=== PATIENT | female | born 1965 | race Caucasian/White ===

== ENCOUNTER 2016-09-03 21:41 | Emergency (ER) | payer SELFPAY ==
[~2016-09-03] VITALS: Ht 154.9 cm; Wt 54.4 kg
[2016-09-03 21:50] VITALS: BP 135/87
--- NOTE | 2016-09-03 22:14 | NUR ---
PATIENT LEFT WITHOUT BEING SEEN BY DR. SHOEMAKER. NO FURTHER CARE PROVIDED FOR PATIENT.
== END 2016-09-03 22:14 | disposition left against medical advice (07) ==
LOC: MED 21:41
DX: R05 Cough (principal); Z53.21 Procedure and treatment not carried out due to patient leaving prior to being seen by health care provider

== ENCOUNTER 2016-09-04 19:42 | Emergency (ER) | payer OTHER ==
[~2016-09-04] VITALS: Ht 154.9 cm; Wt 54.4 kg
[2016-09-04 20:00] VITALS: BP 119/70
--- NOTE | 2016-09-04 20:45 | NUR ---
PATIENT LEFT WITHOUT BEING SEEN BY DR. Boo. NO FURTHER CARE PROVIDED FOR PATIENT.
--- NOTE | 2016-09-04 20:45 | NUR ---
PATIENT LEFT WITHOUT BEING SEEN BY []. NO FURTHER CARE PROVIDED FOR PATIENT.
== END 2016-09-04 20:45 | disposition left against medical advice (07) ==
LOC: MED 19:42
DX: R05 Cough (principal); Z53.21 Procedure and treatment not carried out due to patient leaving prior to being seen by health care provider

== ENCOUNTER 2016-09-05 10:40 | Emergency (ER) | payer OTHER ==
[~2016-09-05] VITALS: Ht 154.9 cm; Wt 59.0 kg
[2016-09-05 10:59] VITALS: BP 131/74
--- NOTE | 2016-09-05 11:08 | NUR ---
PATIENT PRESENTS TO ED DUE TO COUGHING X 4 DAYS . DENIES N/V/D; SKIN IS PINK/WARM/DRY; AAOX4 WITH EVEN AND STEADY GAIT; HR EVEN AND REGULAR; PT DENIES ANY FEVER, CP; PATIENT POSITIONED FOR COMFORT; HOB ELEVATED; BEDRAILS UP X2; BED DOWN.
--- NOTE | 2016-09-05 11:20 | NUR ---
XRAY AT BEDSIDE
[2016-09-05] MEDS ORDERED: PROMETH/CODEINE 6.25-10MG/5ML 5 ML UDC PO ONE (11:35)
[2016-09-05] MEDS ORDERED: IBUPROFEN 800 MG TAB PO ONE (11:35)
--- NOTE | 2016-09-05 11:48 | NUR ---
DR. SHOEMAKER AWARE OF TEMP, COOLING MEASURES DONE, FLUIDS AND ORANGE JUICE GIVEN
[2016-09-05 12:09] VITALS: BP 108/68
--- NOTE | 2016-09-05 12:11 | NUR ---
Patient discharged with v/s stable. Written and verbal after care instructions given and explained. Patient alert, oriented and verbalized understanding of instructions. Ambulatory with steady gait. All questions addressed prior to discharge. ID band removed. Patient advised to follow up with PMD. Rx of AMOXICILLIN AND DEXTROMETHORPAN given. Patient educated on indication of medication including possible reaction and side effects. Opportunity to ask questions provided and answered.ENCOURAGED FLUID INTAKE AND PT AGREED WITH IT.
== END 2016-09-05 12:11 | disposition home or self-care (01) ==
LOC: MED 10:44
DX: J11.1 Influenza due to unidentified influenza virus with other respiratory manifestations (principal); R03.0 Elevated blood-pressure reading, without diagnosis of hypertension; F17.200 Nicotine dependence, unspecified, uncomplicated; Z71.6 Tobacco abuse counseling; Z88.8 Allergy status to other drugs, medicaments and biological substances
CPT/HCPCS: 36415; 71010; 87804; 99285; Q0092

== ENCOUNTER 2017-01-15 13:40 | Emergency (ER) | payer OTHER ==
[~2017-01-15] VITALS: Ht 154.9 cm; Wt 52.2 kg
[2017-01-15 13:55] VITALS: BP 134/85
--- NOTE | 2017-01-15 16:11 | NUR ---
PT TO BED 5
--- NOTE | 2017-01-15 16:12 | NUR ---
PT PRESENTS TO ER FOR EVALUATION OF RASH TO BACK AND LEGS X1 MONTH. PT DENIES ANY MEDICAL HX. DENIES N/V/D; SKIN IS PINK/WARM/DRY; AAOX4 WITH EVEN AND STEADY GAIT; LUNGS CLEAR BL; HR EVEN AND REGULAR; PT DENIES ANY FEVER, CP, SOB, OR COUGH AT THIS TIME; PATIENT STATES PAIN OF 0/10 AT THIS TIME; VSS; PATIENT POSITIONED FOR COMFORT; HOB ELEVATED; BEDRAILS UP X2; BED DOWN. ER MD MADE AWARE OF PT STATUS.
--- NOTE | 2017-01-15 16:15 | NUR ---
DR BOWMAN ASSESSING AAO PT AT BEDSIDE
[2017-01-15 16:26] VITALS: BP 130/90
--- NOTE | 2017-01-15 16:26 | NUR ---
Patient discharged with v/s stable. Written and verbal after care instructions given and explained. Patient alert, oriented and verbalized understanding of instructions. Ambulatory with steady gait. All questions addressed prior to discharge. ID band removed. Patient advised to follow up with PMD. Rx of VISTARIL, MEDROL, PEPCID given. Patient educated on indication of medication including possible reaction and side effects. Opportunity to ask questions provided and answered.
== END 2017-01-15 16:26 | disposition home or self-care (01) ==
LOC: MED 13:40
DX: L50.9 Urticaria, unspecified (principal); Z88.6 Allergy status to analgesic agent; Z88.8 Allergy status to other drugs, medicaments and biological substances
CPT/HCPCS: 99283